=== PATIENT | female | born 1965 | race Caucasian/White ===

== ENCOUNTER → 2016-12-05 | Outpatient (REF) ==
[~2016-12-05] MED LIST: DUAVEE; GLUCOSAMINE & C1 TER PO; LEVOTHROID0.088 MG PO; LEVOXYL0.1 MG PO; MULTIPLE VITAMI1 CAP PO; TUMS 500500 MG PO; VITAMIN C500 MG PO; VITAMIN E1000 U/CAP PO
== END ==
LOC: WSOH 15:15
DX: Z02.89 Encounter for other administrative examinations (principal)

== ENCOUNTER → 2016-12-08 | Outpatient (CLI) | payer OTHER | LOC: MC.RAD 13:37 | DX: Z12.31 Encounter for screening mammogram for malignant neoplasm of breast (principal) ==

== ENCOUNTER → 2017-01-18 | Outpatient (REF) | LOC: WSOH 16:30 | DX: Z02.89 Encounter for other administrative examinations (principal) ==

== ENCOUNTER → 2017-05-26 | Outpatient (CLI) | payer OTHER ==
[2017-05-26 06:21] LABS: BASO # 0.1 (0.0-0.2); BASO % 0.6 % (0.0-2.0); EOS # 0.2 (0.0-0.7); EOS % 2.2 % (0-4.0); GRAN % 63.9 % (42.2-75.2); HEMOGLOBIN 12.3 g/dl (12.5-16.0); LYMPH # 1.9 (1.2-3.4); LYMPH % 24.5 % (20.0-51.0); MEAN CELL VOLUME 87 fl (80.0-100.0); MEAN CORPUSCULAR HEMOGLOBIN 28 pg (27.0-31.0); MEAN CORPUSCULAR HGB CONC 32 g/dl (33.0-37.0); MEAN PLATELET VOLUME 9.7 fl (7.4-10.4); MONO # 0.7 (0.1-0.6); MONO % 8.7 % (1.7-9.3); PLATELET COUNT 298 K/mm3 (130-400); RED BLOOD COUNT 4.37 M/mm3 (4.10-5.30); REDCELL DISTRIBUTION WIDTH-CV 13.5 % (11.5-14.5)
[2017-05-26 06:35] LABS: BILIRUBIN,TOTAL 0.4 mg/dL (0.0-1.0); CHOLESTEROL RISK RATIO 2.7; CREATININE, serum 0.66 mg/dL (0.52-1.25); TOTAL PROTEIN 7.4 gm/dL (6.4-8.2)
[2017-05-26 07:04] LABS: THYROID STIMULATING HORMONE 6.31 uIU/mL (0.465-4.680)
== END ==
LOC: COL.LAB 05:54
PROVIDERS: Internal Medicine
DX: Z00.00 Encounter for general adult medical examination without abnormal findings (principal); E03.4 Atrophy of thyroid (acquired); M54.6 Pain in thoracic spine; G89.29 Other chronic pain; R25.2 Cramp and spasm

== ENCOUNTER → 2017-08-07 | Outpatient (CLI) | payer OTHER ==
[2017-08-07 10:06] LABS: THYROID STIMULATING HORMONE 2.11 uIU/mL (0.465-4.680)
== END ==
LOC: COL.LAB 09:08
PROVIDERS: Internal Medicine
DX: Z00.00 Encounter for general adult medical examination without abnormal findings (principal); E03.4 Atrophy of thyroid (acquired)

== ENCOUNTER → 2018-02-09 | Outpatient (CLI) | payer OTHER | LOC: MC.RAD 14:34 | DX: Z12.31 Encounter for screening mammogram for malignant neoplasm of breast (principal) ==

== ENCOUNTER 2018-06-14 20:01 | Emergency (ER) | payer OTHER ==
[~2018-06-14] VITALS: Ht 172.7 cm; Wt 92.7 kg
[2018-06-14 20:04] VITALS: BP 139/91; TEMP 97.9
[2018-06-14] MEDS ORDERED: FLEXERIL 1010 MG/TAB PO (21:11)
[2018-06-14 21:30] VITALS: PULSE 88
== END 2018-06-14 21:30 | disposition home or self-care (01) ==
LOC: COL.ER 20:01
DX: S70.01XA Contusion of right hip, initial encounter (principal); S16.1XXA Strain of muscle, fascia and tendon at neck level, initial encounter; V43.52XA Car driver injured in collision with other type car in traffic accident, initial encounter

== ENCOUNTER → 2018-06-25 | Outpatient (CLI) | payer OTHER ==
[~2018-06-25] MED LIST changes: +FLEXERIL 1010 MG/TAB PO
[2018-06-25 07:54] LABS: BASO # 0.1 (0.0-0.2); BASO % 0.5 % (0.0-2.0); EOS # 0.3 (0.0-0.7); EOS % 3.1 % (0-4.0); GRAN # 6.5 (1.4-6.5); HEMOGLOBIN 11.9 g/dl (12.5-16.0); LYMPH # 1.9 (1.2-3.4); MEAN CELL VOLUME 86 fl (80.0-100.0); MEAN CORPUSCULAR HEMOGLOBIN 28 pg (27.0-31.0); MEAN CORPUSCULAR HGB CONC 33 g/dl (33.0-37.0); MEAN PLATELET VOLUME 9.5 fl (7.4-10.4); MONO # 0.7 (0.1-0.6); MONO % 7.2 % (1.7-9.3); PLATELET COUNT 315 K/mm3 (130-400); RED BLOOD COUNT 4.26 M/mm3 (4.10-5.30); REDCELL DISTRIBUTION WIDTH-CV 13.7 % (11.5-14.5)
[2018-06-25 07:59] LABS: HEMATOCRIT 36.6 % (37.0-47.0)
[2018-06-25 08:12] LABS: ALBUMIN 3.9 gm/dL (3.5-5.0); BILIRUBIN,TOTAL 0.2 mg/dL (0.0-1.0); CALCIUM 9.3 mg/dL (8.4-10.2); CHOLESTEROL RISK RATIO 2.3; CREATININE, serum 0.68 mg/dL (0.52-1.25); POTASSIUM 4.7 mmol/L (3.4-5.0); TOTAL PROTEIN 7.3 gm/dL (6.4-8.2)
[2018-06-25 08:42] LABS: THYROID STIMULATING HORMONE 2.83 uIU/mL (0.465-4.680)
== END ==
LOC: COL.LAB 07:33
PROVIDERS: Internal Medicine
DX: Z00.00 Encounter for general adult medical examination without abnormal findings (principal); E03.4 Atrophy of thyroid (acquired)

== ENCOUNTER → 2019-04-02 | Outpatient (CLI) | payer OTHER | LOC: MC.RAD 03-04 14:45 | DX: Z12.31 Encounter for screening mammogram for malignant neoplasm of breast (principal) ==

== ENCOUNTER → 2019-06-03 | Outpatient (CLI) | payer OTHER ==
[2019-06-03 06:50] LABS: BASO % 0.5 % (0.0-2.0); EOS # 0.1 (0.0-0.7); EOS % 2.4 % (0-4.0); GRAN # 3.9 (1.4-6.5); GRAN % 66.4 % (42.2-75.2); HEMATOCRIT 38.7 % (37.0-47.0); HEMOGLOBIN 12.6 g/dl (12.5-16.0); LYMPH # 1.3 (1.2-3.4); LYMPH % 22.6 % (20.0-51.0); MEAN CELL VOLUME 85 fl (80.0-100.0); MEAN CORPUSCULAR HEMOGLOBIN 28 pg (27.0-31.0); MEAN CORPUSCULAR HGB CONC 33 g/dl (33.0-37.0); MEAN PLATELET VOLUME 9.2 fl (7.4-10.4); MONO # 0.5 (0.1-0.6); MONO % 7.8 % (1.7-9.3); PLATELET COUNT 317 K/mm3 (130-400); RED BLOOD COUNT 4.54 M/mm3 (4.10-5.30); REDCELL DISTRIBUTION WIDTH-CV 13.1 % (11.5-14.5)
[2019-06-03 07:00] LABS: ALBUMIN 4.4 gm/dL (3.5-5.0); BILIRUBIN,TOTAL 0.4 mg/dL (0.0-1.0); CALCIUM 9.5 mg/dL (8.4-10.2); CHOLESTEROL RISK RATIO 2.5; CREATININE, serum 0.69 (0.52-1.25); POTASSIUM 3.9 mmol/L (3.4-5.0); TOTAL PROTEIN 8.3 gm/dL (6.4-8.2)
[2019-06-03 07:29] LABS: THYROID STIMULATING HORMONE 4.35 uIU/mL (0.465-4.680)
== END ==
LOC: COL.LAB 06:16
PROVIDERS: Internal Medicine
DX: Z00.00 Encounter for general adult medical examination without abnormal findings (principal); K21.9 Gastro-esophageal reflux disease without esophagitis; E03.4 Atrophy of thyroid (acquired); R68.2 Dry mouth, unspecified; I87.2 Venous insufficiency (chronic) (peripheral)

== ENCOUNTER → 2020-10-13 | Outpatient (CLI) | payer OTHER ==
[~2020-10-13] MED LIST changes: +DUO-KAPS1 CAP PO; +TIROSINT100 MC1 PO; +WELLBUTRIN XL150 MG PO; +WELLBUTRIN XL300 M1 PO
== END ==
LOC: MC.RAD 09-24 15:45
DX: Z12.31 Encounter for screening mammogram for malignant neoplasm of breast (principal)

== ENCOUNTER → 2020-10-29 | Outpatient (CLI) | payer OTHER ==
[2020-10-29 07:39] LABS: BASO # 0.1 (0.0-0.2); BASO % 0.6 % (0.0-2.0); EOS # 0.1 (0.0-0.7); EOS % 1.7 % (0-4.0); GRAN # 5.8 (1.4-6.5); GRAN % 68.7 % (42.2-75.2); HEMATOCRIT 38.2 % (37.0-47.0); HEMOGLOBIN 12.3 g/dl (12.5-16.0); LYMPH # 1.7 (1.2-3.4); LYMPH % 20.6 % (20.0-51.0); MEAN CELL VOLUME 86 fl (80.0-100.0); MEAN CORPUSCULAR HEMOGLOBIN 28 pg (27.0-31.0); MEAN CORPUSCULAR HGB CONC 32 g/dl (33.0-37.0); MEAN PLATELET VOLUME 9.6 fl (7.4-10.4); MONO # 0.7 (0.1-0.6); MONO % 8.3 % (1.7-9.3); PLATELET COUNT 321 K/mm3 (130-400); RED BLOOD COUNT 4.42 M/mm3 (4.10-5.30); REDCELL DISTRIBUTION WIDTH-CV 13.6 % (11.5-14.5)
[2020-10-29 08:11] LABS: ALBUMIN 4.2 gm/dL (3.5-5.0); BILIRUBIN,TOTAL 0.4 mg/dL (0.0-1.0); CALCIUM 9.5 mg/dL (8.4-10.2); CREATININE, serum 0.68 (0.52-1.25); POTASSIUM 4.4 mmol/L (3.4-5.0); TOTAL PROTEIN 7.7 gm/dL (6.4-8.2)
[2020-10-29 08:25] LABS: CHOLESTEROL RISK RATIO 2.5
[2020-10-29 08:41] LABS: THYROID STIMULATING HORMONE 4.26 uIU/mL (0.465-4.680)
== END ==
LOC: COL.LAB 07:17
PROVIDERS: Internal Medicine
DX: Z00.00 Encounter for general adult medical examination without abnormal findings (principal); E03.4 Atrophy of thyroid (acquired); F41.8 Other specified anxiety disorders

== ENCOUNTER 2020-11-26 05:35 | Day surgery (SDC) | payer OTHER ==
[~2020-11-26] VITALS: Ht 172.7 cm; Wt 87.7 kg
[~2020-11-26 05:35] MED LIST changes: -WELLBUTRIN XL300 M1 PO
[2020-11-26] MEDS ORDERED: WELLBUTRIN XL300 M1 PO (05:48)
[2020-11-26 06:07] VITALS: BP 129/85; PULSE 93; TEMP 97.9
[2020-11-26 07:45] VITALS: BP 105/90; PULSE 90
--- NOTE | 2020-11-26 07:45 | NUR ---
Patient returns to room 8 per cart from surgery accompanied by Cierra CARRION and Colton Luna CRNA and arouses to verbal stimuli. Bulky chema wrap dressing noted on hands bilaterally. CMS WNL and arms elevated on pillows. IV fluids infusing. All digits warm and pink. Call light in reach and siderails up x2.
[2020-11-26 08:00] VITALS: BP 114/89; PULSE 91
--- NOTE | 2020-11-26 08:00 | NUR ---
Eating muffin. More awake. Bilateral hands laying on pillows.
--- NOTE | 2020-11-26 08:00 | NUR ---
Drinking water and sipping on Pepsi. Denies pain or nausea.
[2020-11-26 08:15] VITALS: BP 120/70; PULSE 88
[2020-11-26 08:30] VITALS: BP 118/57; PULSE 86
--- NOTE | 2020-11-26 08:30 | NUR ---
Resting when not disturbed. IV fluids continue to infuse.
[2020-11-26 09:00] VITALS: BP 122/61; PULSE 85
--- NOTE | 2020-11-26 09:00 | NUR ---
Awake. Continues to deny pain or nausea.
--- NOTE | 2020-11-26 09:11 | NUR ---
IV discontinued and site is free of redness. Assisted up to the bathroom and gait is steay. Voids and returns to room. Patient dresses self.
--- NOTE | 2020-11-26 09:24 | NUR ---
Dismissal instructions signed and patient voices understanding of these. Patient voices understanding of the need to get scripts picked up from the pharmacy.
== END 2020-11-26 09:27 | disposition home or self-care (01) ==
LOC: SDCO 05:35
DX: M65.322 Trigger finger, left index finger (principal); M65.311 Trigger thumb, right thumb; E07.9 Disorder of thyroid, unspecified; F32.9 Major depressive disorder, single episode, unspecified; K21.9 Gastro-esophageal reflux disease without esophagitis; Z79.890 Hormone replacement therapy; Z20.822 Contact with and (suspected) exposure to COVID-19; Z79.899 Other long term (current) drug therapy
CPT/HCPCS: J0690; J1885; J2704; J3010; J7120

== ENCOUNTER → 2020-12-03 | Outpatient (REF) ==
[~2020-12-03] MED LIST changes: +WELLBUTRIN XL300 M1 PO
== END ==
LOC: COL.LAB 13:06
DX: U07.1 COVID-19 (principal)

== ENCOUNTER → 2021-06-08 | Outpatient (CLI) | payer OTHER ==
[2021-06-08 08:18] LABS: BASO # 0.1 K/mm3 (0.0-0.2); BASO % 0.7 % (0.0-2.0); EOS # 0.2 K/mm3 (0.0-0.7); EOS % 2.5 % (0.0-4.0); GRAN # 5.2 K/mm3 (1.4-6.5); GRAN % 71.1 % (42.2-75.2); HEMATOCRIT 40.2 % (37.0-47.0); HEMOGLOBIN 12.8 g/dl (12.5-16.0); LYMPH # 1.3 K/mm3 (1.2-3.4); LYMPH % 17.3 % (20.0-51.0); MEAN CELL VOLUME 87 fl (80.0-100.0); MEAN CORPUSCULAR HEMOGLOBIN 28 pg (27-31); MEAN CORPUSCULAR HGB CONC 32 g/dl (33.0-37.0); MEAN PLATELET VOLUME 9.8 fl (7.4-10.4); MONO # 0.6 K/mm3 (0.1-0.6); MONO % 8.1 % (1.7-9.3); PLATELET COUNT 355 K/mm3 (130-400); RED BLOOD COUNT 4.65 M/mm3 (4.10-5.30); REDCELL DISTRIBUTION WIDTH-CV 13.8 % (11.5-14.5)
[2021-06-08 08:23] LABS: ALBUMIN 3.6 gm/dL (3.5-5.0); BILIRUBIN,TOTAL 0.4 mg/dL (0.2-1.2); CALCIUM 9.1 mg/dL (8.4-10.2); CHOLESTEROL RISK RATIO 2.6; CREATININE, serum 0.73 mg/dL (0.57-1.11); POTASSIUM 4.2 mmol/L (3.5-4.5); TOTAL PROTEIN 7.5 gm/dL (6.2-8.1)
[2021-06-08 08:47] LABS: THYROID STIMULATING HORMONE 3.245 uIU/mL (0.350-4.940)
== END ==
LOC: COL.LAB 07:16
DX: Z00.00 Encounter for general adult medical examination without abnormal findings (principal); E03.4 Atrophy of thyroid (acquired)

== ENCOUNTER → 2021-08-04 | Outpatient (REF) | payer OTHER | LOC: WSPT 07-28 16:30 | DX: S86.092A Other specified injury of left Achilles tendon, initial encounter (principal) ==

== ENCOUNTER → 2021-08-26 | Outpatient (RCR) | payer OTHER | END | disposition home or self-care (01) | LOC: WSPT | DX: S86.092D Other specified injury of left Achilles tendon, subsequent encounter (principal); X58.XXXD Exposure to other specified factors, subsequent encounter ==

== ENCOUNTER 2021-09-15 16:30 | Outpatient (RCR) | payer OTHER | END 2021-09-15 17:00 | disposition home or self-care (01) | LOC: WSPT 16:30 | DX: M76.60 Achilles tendinitis, unspecified leg (principal) ==

== ENCOUNTER → 2022-01-18 | Outpatient (CLI) | payer OTHER | LOC: MC.RAD 14:51 | DX: Z12.31 Encounter for screening mammogram for malignant neoplasm of breast (principal) ==

== ENCOUNTER 2022-08-25 05:25 | Day surgery (SDC) | payer OTHER ==
[~2022-08-25] VITALS: Ht 172.7 cm; Wt 90.9 kg
[2022-08-25] MEDS ORDERED: NORCO 325 MG-7.1 TAB PO (06:14)
[2022-08-25 06:28] VITALS: BP 133/84; PULSE 80; TEMP 98.2
[2022-08-25 08:05] VITALS: BP 129/78; PULSE 82; TEMP 97.6
[2022-08-25 08:20] VITALS: BP 129/72; PULSE 77
[2022-08-25 08:45] VITALS: BP 132/87; PULSE 98
--- NOTE | 2022-08-25 09:54 | NUR ---
0805: PATIENT TO BAY 7 PER CART FROM OR. REPORT RECEIVED FROM OR NURSE AND PHYSICAL THERAPY COORDINATOR. VS OBTAINED. VS STABLE. BREATHING EVEN AN UNLABORED. VON WRAP TO EDUARDO HANDS C/D/I. PATIENT ALERT AND TALKING. RATES PAIN 2/10 IN RIGHT HAND BUT DENIES PAIN IN LEFT HAND. RESTING ON COT AT THIS TIME. NO CONCERNS NOTED. CALL LIGHT IN REACH. 0820: VS REMAIN STABLE SODA AND MUFFIN GIVEN AT THIS TIME. DRESSING REMAINS C/D/I. RESTING IN COT. CALL LIGHT IN REACH. 0845: VS REMAIN STABLE. PATIENT CONTINUES TO RATE PAIN 2/10 IN RIGHT HAND. NO S/S OF DISSTRESS NOTED. RESTING IN COT. CALL LIGHT IN REACH. AT BEDSIDE. 0858: IV OUT AT THIS TIME. ASSISTING PATIENT WITH DRESSING. 0905: DISCHARGE EDUCATION COMPLETED. PATIENT STATED UNDERSTANDING OF [facility] FOLLOW UP CARE. DISCHARGE PAPERWORK GIVEN TO PATIENT. 0910: PATIENT OFF UNIT VIA WHEELCHAIR. PATIENT DISCHARGED TO HOME WITH VIA PERSONAL VEHICLE.
== END 2022-08-25 09:10 | disposition home or self-care (01) ==
LOC: SDCO 05:25
DX: M65.312 Trigger thumb, left thumb (principal); M65.321 Trigger finger, right index finger
CPT/HCPCS: J0690; J1885; J2704; J3010; J7120